=== PATIENT | male | born 1960 | race African-American/Black ===

== ENCOUNTER 2024-04-12 10:19 | Inpatient (IN) | payer MEDICARE, MEDICAID ==
[~2024-04-12] VITALS: Ht 172.7 cm; Wt 100.1 kg
[2024-04-12 10:47] LABS: Hematocrit 49.2 % (41.0-53.0)
[2024-04-12 10:50] LABS: Hemoglobin 17.7 g/dL (13.5-17.5); Mean Corpuscular Hemoglobin 29.4 pg (28.0-32.0); Mean Corpuscular Volume 81.9 fL (80.0-100.0); Platelet Count (auto) 273 10^3/uL (140-450); Red Blood Cells 6.01 10^6/uL (4.5-5.90); Red Cell Distribution Width 14.1 % (11.8-14.3); White Blood Cell 7.8 10^3/uL (4.4-10.8)
[2024-04-12 10:59] LABS: Alanine Aminotransferase 15 U/L (7-40); Albumin 4.6 g/dL (3.2-4.8); Alkaline Phosphatase 78 U/L (46-116); Anion Gap 5 (5-15); Aspartate Aminotransferase 15 U/L (13-40); BUN/Creatinine Ratio 10.9 (10.0-20.0); Bilirubin, Total 1.3 mg/dL (0.2-1.0); Blood Urea Nitrogen 14 mg/dL (9-23); Calcium 10.5 mg/dL (8.7-10.4); Carbon Dioxide 27 mmol/L (20-31); Chloride 106 mmol/L (98-107); Glucose 98 mg/dL (74-106); Potassium 4.4 mmol/L (3.5-5.1); Sodium 138 mmol/L (136-145); Total Protein 8.6 g/dL (5.7-8.2)
[2024-04-12 11:15] LABS: Band Neutrophils % (manual) 0; Basophils % (manual) 0 (0.0-2.0); Blast Cells 0; Metamyelocytes % 0; Myelocytes % 0; Promyelocytes % 0; Reactive Lymphocytes 0
[2024-04-12 12:10] VITALS: RESP 18; O2SAT 98
[2024-04-12 12:19] LABS: Eosinophils % (manual) 5 (0-7); Lymphocytes % (manual) 38 (10.0-50.0); Monocytes % (manual) 7 (0-12)
[2024-04-12 12:20] LABS: Platelet Estimate Adequate
[2024-04-12] MEDS: ASPirin-EC 325mg tab PO ONE (12:20)
[2024-04-12] MEDS: NITROGLYCERIN 0.4 MG SL TAB SL ONE (12:20)
[2024-04-12 12:53] LABS: Urine Bacteria MANY /hpf (None Seen); Urine Blood 1+ /uL (Negative); Urine Clarity Turbid (Clear); Urine Color Yellow (Yellow); Urine Hyaline Cast FEW /lpf (0 - 2); Urine Mucus FEW (None Seen); Urine Protein, UAD 1+ (Negative); Urine Specific Gravity 1.027 (1.001-1.035); Urine Sperm PRESENT /hpf (None Seen); Urine Urobilinogen 2 mg/dL (Negative); Urine WBC 2 /hpf (0 - 3); Urine pH 5.5 (5.0-9.0)
[2024-04-12 13:35] VITALS: PULSE 71; RESP 16; O2SAT 95
[2024-04-12] MEDS ORDERED: ACETAMINOPHEN 325 MG TAB PO PRN (14:00)
[2024-04-12] MEDS ORDERED: NITROGLYCERIN 0.4 MG SL TAB SL PRN (14:00)
[2024-04-12] MEDS ORDERED: HYDROcodone-ACET 5/325MG TAB PO PRN (14:00)
[2024-04-12] MEDS ORDERED: ONDANSETRON HCL 4 MG/2 ML VIAL IV PRN (14:00)
[2024-04-12] MEDS ORDERED: MORPHINE SULFATE INJ 2 MG/ml SYRG IV PRN (14:00)
[2024-04-12] MEDS: NITROFURANTOIN 100 mg CAP PO SCH (14:46)
[2024-04-12 16:26] VITALS: BP 146/86; PULSE 73; RESP 17; TEMP 98; O2SAT 94
[2024-04-12 16:58] VITALS: RESP 17; O2SAT 94
[2024-04-12] MEDS ORDERED: CARV6.2551 PO (17:42)
[2024-04-12] MEDS ORDERED: MONT-8 PO (17:43)
[2024-04-12] MEDS ORDERED: LOSA-534 PO (17:43)
[2024-04-12] MEDS ORDERED: ASPI1TAB20 PO (17:44)
[2024-04-12] MEDS ORDERED: ATOR40TA52 PO (17:44)
[2024-04-12] MEDS: cefTRIAXone 1GM/50ML D5W 50 ML IV SCH (17:46)
[2024-04-12] MEDS ORDERED: ALBUAER3 IN (17:48)
[2024-04-12 20:00] VITALS: PULSE 63; PULSE 69; RESP 19; O2SAT 95
[2024-04-12 21:00] VITALS: BP 137/73; PULSE 69; RESP 19; TEMP 98.4; O2SAT 95
[2024-04-12] MEDS: ATORVASTATIN 20 MG TAB PO SCH (22:03)
[2024-04-12] MEDS: CARVEDILOL 3.125 MG TAB PO SCH (22:03)
[2024-04-13] VITALS (13 sets, daily range): BP systolic 119–167; BP diastolic 75–110; PULSE 50–81; RESP 12–18; TEMP 97.6–98.4; O2SAT 92–100
[2024-04-13 06:52] LABS: Alanine Aminotransferase 15 U/L (7-40); Alkaline Phosphatase 66 U/L (46-116); Anion Gap 7 (5-15); Aspartate Aminotransferase 15 U/L (13-40); BUN/Creatinine Ratio 9.7 (10.0-20.0); Bilirubin, Total 1.4 mg/dL (0.2-1.0); Blood Urea Nitrogen 11 mg/dL (9-23); Calcium 9.8 mg/dL (8.7-10.4); Carbon Dioxide 23 mmol/L (20-31); Chloride 107 mmol/L (98-107); Cholesterol 158 mg/dL (< 200); Glucose 101 mg/dL (74-106); HDL Cholesterol 58 mg/dL (40-59); LDL Cholesterol 83 mg/dL (< 100); Magnesium 2.2 mg/dL (1.6-2.6); Potassium 4.1 mmol/L (3.5-5.1); Sodium 137 mmol/L (136-145); Triglycerides 86 mg/dL (< 150)
[2024-04-13 06:53] LABS: INR 1.05 (0.9-1.15); Partial Thromboplastin Time 30.3 SEC (24.5-34.5); Prothrombin Time 11.1 sec (9.3-11.8); Total Protein 7.5 g/dL (5.7-8.2)
[2024-04-13 07:48] LABS: Basophils # (auto) 0 10 ^3/uL (0-0.2); Basophils % (auto) 0.4 % (0.0-2.0); Eosinophils # (auto) 0.5 10 ^3/uL (0-0.8); Eosinophils % (auto) 7.8 % (0.0-7.0); Hematocrit 45.1 % (41.0-53.0); Hemoglobin 15.9 g/dL (13.5-17.5); Lymphocytes # (auto) 1.7 10 ^3/uL (0.4-5.4); Lymphocytes % (auto) 25.1 % (10.0-50.0); Mean Corpuscular Hemoglobin 28.9 pg (28.0-32.0); Mean Corpuscular Hgb Conc. 35.1 g/dL (32.0-36.0); Mean Corpuscular Volume 82.4 fL (80.0-100.0); Monocytes # (auto) 0.6 10 ^3/uL (0-1.3); Monocytes % (auto) 9.3 % (0.0-12.0); Neutrophils # (auto) 3.9 10 ^3/uL (1.6-8.6); Neutrophils % (auto) 57.4 % (37.0-80.0); Nucleated Red Blood Cells % 0.5 %; Platelet Count (auto) 236 10^3/uL (140-450); Red Blood Cells 5.48 10^6/uL (4.5-5.90); White Blood Cell 6.8 10^3/uL (4.4-10.8)
[2024-04-13] MEDS: ASPirin 81 mg TAB PO SCH (09:42)
[2024-04-13] MEDS: LOSARTAN POTASSIUM 25 MG TAB PO SCH (09:42)
[2024-04-13] MEDS: IODIXANOL 320MG/ML 100ML BTL IV ONE (13:37)
[2024-04-13] MEDS: fentaNYL CITRATE 100 MCG/2 ML VL ONE (13:44)
[2024-04-13] MEDS: LIDOCAINE 2%HCL (LOCAL ANESTH.) INJ 20ML MDV ONE (13:44)
[2024-04-13] MEDS: MIDAZOLAM HCL 2MG/2ML 2ml VIAL (1mg/ml) ONE (13:44)
[2024-04-13] MEDS: VERAPAMIL 2.5MG/ML INJ 2ML VIAL IV ONE (13:45)
[2024-04-13] MEDS: HEPARIN SODIUM (PORCINE) 5000 UNITS/ML 1ML VIAL ONE (13:45)
[2024-04-13] MEDS: ATROPINE SULF 1 MG/10ml SYR ONE (14:22)
[2024-04-13] MEDS: hydrALAZINE HCL 25 MG TAB PO SCH (16:18)
[2024-04-13] MEDS: CLOPIDOGREL BISULFATE 75 MG TAB PO ONE (17:05)
[2024-04-14] VITALS (8 sets, daily range): BP systolic 126–159; BP diastolic 75–84; PULSE 52–73; RESP 16–20; TEMP 97.3–98.2; O2SAT 94–97
[2024-04-14 07:05] LABS: Chloride 108 mmol/L (98-107); Potassium 4.2 mmol/L (3.5-5.1); Sodium 137 mmol/L (136-145)
[2024-04-14 07:06] LABS: Anion Gap 4 (5-15); Calcium 9.7 mg/dL (8.7-10.4); Carbon Dioxide 25 mmol/L (20-31)
[2024-04-14 07:07] LABS: Basophils # (auto) 0.1 10 ^3/uL (0-0.2); Basophils % (auto) 1.2 % (0.0-2.0); Eosinophils # (auto) 0.5 10 ^3/uL (0-0.8); Eosinophils % (auto) 7.4 % (0.0-7.0); Hematocrit 45.3 % (41.0-53.0); Hemoglobin 16.2 g/dL (13.5-17.5); Lymphocytes # (auto) 1.8 10 ^3/uL (0.4-5.4); Lymphocytes % (auto) 25.3 % (10.0-50.0); Mean Corpuscular Hemoglobin 29.4 pg (28.0-32.0); Mean Corpuscular Hgb Conc. 35.9 g/dL (32.0-36.0); Monocytes # (auto) 0.7 10 ^3/uL (0-1.3); Monocytes % (auto) 10.1 % (0.0-12.0); Nucleated Red Blood Cells % 0.2 %; Platelet Count (auto) 233 10^3/uL (140-450); Red Blood Cells 5.52 10^6/uL (4.5-5.90); Red Cell Distribution Width 14.2 % (11.8-14.3); White Blood Cell 7.1 10^3/uL (4.4-10.8)
[2024-04-14 07:11] LABS: BUN/Creatinine Ratio 12.8 (10.0-20.0); Blood Urea Nitrogen 15 mg/dL (9-23); Glucose 108 mg/dL (74-106)
[2024-04-14] MEDS: hydrALAZINE HCL 20 MG/ML VL IV PRN (15:19)
[2024-04-14] MEDS: CARVEDILOL 12.5 MG TAB PO SCH (22:00)
[2024-04-15] VITALS (8 sets, daily range): BP systolic 116–152; BP diastolic 62–82; PULSE 56–85; RESP 16–20; TEMP 97.6–98.3; O2SAT 93–96
[2024-04-15 06:58] LABS: Alanine Aminotransferase 14 U/L (7-40); Alkaline Phosphatase 73 U/L (46-116); Anion Gap 9 (5-15); Aspartate Aminotransferase 15 U/L (13-40); BUN/Creatinine Ratio 11.9 (10.0-20.0); Blood Urea Nitrogen 13 mg/dL (9-23); Calcium 10.1 mg/dL (8.7-10.4); Carbon Dioxide 23 mmol/L (20-31); Chloride 106 mmol/L (98-107); Glucose 102 mg/dL (74-106); Potassium 3.9 mmol/L (3.5-5.1); Sodium 138 mmol/L (136-145)
[2024-04-15 06:59] LABS: Albumin 4.2 g/dL (3.2-4.8); Bilirubin, Total 1.1 mg/dL (0.2-1.0); Total Protein 7.9 g/dL (5.7-8.2)
[2024-04-15] MEDS: LOSARTAN POTASSIUM 50 MG TAB PO SCH (09:24)
[2024-04-16] VITALS (9 sets, daily range): BP systolic 119–157; BP diastolic 64–80; PULSE 57–80; RESP 16–20; TEMP 97.6–98; O2SAT 94–97
[2024-04-17] VITALS (7 sets, daily range): BP systolic 122–161; BP diastolic 68–81; PULSE 57–83; RESP 16–20; TEMP 36.7; O2SAT 93–97
== END 2024-04-17 20:40 | disposition short-term general hospital (02) | DRG 191 ==
LOC: ER 10:19 → TELE 13:55 → TELE-WESTW 15:25
PROVIDERS: ADMIT Registered Nurse General Practice; ATTEND Student in an Organized Health Care Education/Training Program
PROC: B211YZZ Fluoroscopy of Multiple Coronary Arteries using Other Contrast (ICD-10-PCS; principal; 2024-04-13)
PROC: 4A023N7 Measurement of Cardiac Sampling and Pressure, Left Heart, Percutaneous Approach (ICD-10-PCS; 2024-04-13)
DX: I25.10 Atherosclerotic heart disease of native coronary artery without angina pectoris (principal); I25.82 Chronic total occlusion of coronary artery; E66.9 Obesity, unspecified; I10 Essential (primary) hypertension; N30.00 Acute cystitis without hematuria; E78.5 Hyperlipidemia, unspecified; J45.909 Unspecified asthma, uncomplicated; Z95.5 Presence of coronary angioplasty implant and graft; Z87.891 Personal history of nicotine dependence
CPT/HCPCS: 36415; 71045; 80048; 80053; 80061; 81001; 83036; 83735; 83880; 84443; 84484; 85007; 85025; 85027; 85610; 85730; 86850; 86900; 86901; 93005; 93306; 93458; 96365; 99152; G0378; J2250; J2405; Q9967